=== PATIENT | male | born 1940 | race Caucasian/White ===

== ENCOUNTER → 2018-11-20 | Outpatient (CLI) | payer MEDICARE, BC ==
--- NOTE | 2018-11-21 19:23 | US ---
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 bladder infection x 1 month- on 3rd type of meds. 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 EXAM MEASUREMENTS: Right Kidney: 12.9 x 5.6 x 5.9 cm Left Kidney: 11.3 x 3.9 x 4.2 cm Right Kidney: lower pole echogenic focus= 0.7 x 0.6 cm Left Kidney: lower pole anterior cystic appearing lesion = 2.1 x 2.0 x 1.7 cm Bladder: distended, bladder wall= 3.1 mm, upper limits of normal Right Jet seen There is no evidence for hydronephrosis at this point in time. No nephrolithiasis is seen. No susan s are identified. The urinary bladder is anechoic. Bilateral ureteral jets are seen. IMPRESSION: Nonobstructing calculus lower pole right kidney. Left renal cortical cyst. No hydronephrosis. We did not demonstrate left-sided ureteral jet but there was no hydronephrosis.
== END ==
LOC: RADUSWWP 15:25
PROVIDERS: ATTEND Family Medicine
DX: N20.0 Calculus of kidney (principal); N28.1 Cyst of kidney, acquired
CPT/HCPCS: 76770

== ENCOUNTER → 2022-05-22 | Outpatient (CLI) | payer MEDICARE, BC ==
--- NOTE | 2022-05-22 10:12 | XR ---
EXAM TYPE: LUMBAR SPINE X RAY SERIES COMPARISON: NONE HISTORY: Pain TECHNIQUE: 4 views are submitted. FINDINGS: Alignment is anatomic. The pedicles are intact. The transverse processes are intact. There is diff use osteopenia with large anterior hypertrophic spurs at the thoracolumbar junction and upper lumbar spine. Multilevel [id number] degenerative disc disease most marked at levels L4-5 and L5-S1. Gr tucker 1 anterolisthesis L4 and L5 with facet arthropathy at L4-5 and L5-S1. Vascular calcifications are noted. Suspect a lower pole right renal calculus measuring 1 cm. IMPRESSION: 1. Diffuse osteopenia with multilevel moderate degenerative disc disease and facet arthropathy most m arked at L4-5 and L5-S1 consider MRI follow-up with mild anterolisthesis of L4 on L5. 2. Right renal calculus.
== END | disposition home or self-care (01) ==
LOC: RADXRYALE 09:29
PROVIDERS: ATTEND Physician Assistant
DX: M51.37 Other intervertebral disc degeneration, lumbosacral region (principal); M47.817 Spondylosis without myelopathy or radiculopathy, lumbosacral region; M43.16 Spondylolisthesis, lumbar region; M85.88 Other specified disorders of bone density and structure, other site; N20.0 Calculus of kidney
CPT/HCPCS: 72110